=== PATIENT | female | born 1955 | race Caucasian/White ===

== ENCOUNTER 2020-03-24 08:39 | Outpatient (CLI) | payer MEDICARE, OTHER, SELFPAY ==
--- NOTE | ~2020-03-24 | DEXA_ITS ---
Bone Density Report Name: Pily Kumar Age: 64 Sex: Female Ethnicity: White Date of : 1955 Indication: osteopenia; height loss; cancer; hysterectomy; Referring Provider: DESMONDFRANCA Study: Bone densitometry was performed. Exam Date: March 24, 2020 Accession number: [id number] Bone Density: Region BMD T-score Z-score Classification AP Spine (L1-L4) 0.876 -1.6 0.2 Osteopenia Femoral Neck (Left) 0.726 -1.1 0.4 Osteopenia Total Hip (Left) 0.761 -1.5 -0.2 Osteopenia Total Hip Bilateral Avg 0.742 -1.7 -0.4 Osteopenia Femoral Neck (Right) 0.688 -1.5 0.1 Osteopenia Total Hip (Right) 0.721 -1.8 -0.6 Osteopenia World Health Organization criteria for BMD impression classify patients as: Normal (T-score at or above -1.0), Osteopenia (T-score between -1.0 and -2.5), or Osteoporosis (T-score at or below -2.5). 10-year Fracture Risk(1): Major Osteoporotic Fracture 8.7% Hip Fracture 0.9% Reported Risk Factors: [place] (), Neck BMD=0.688, BMI=28.2 (1) FRAX(R) Version 3.08. Fracture probability calculated for an untreated patient. Fracture probability may be lower if the patient has received treatment. Previous Exams: Region Exam Age BMD T-score BMD Change BMD Change Date g/cm2 vs Baseline vs Previous AP Spine(L1-L4) 03/24/2020 64 0.876 -1.6 -0.191(-17.9%) 0.009(1.1%) 04/08/2015 59 0.867 -1.6 -0.200(-18.8%) -0.063(-6.8%)# 02/16/2011 55 0.930 -1.1 -0.137(-12.9%) -0.044(-4.5%)# 02/08/2009 53 0.974 -0.7 -0.093(-8.7%)* -0.018(-1.8%) 10/25/2006 51 0.992 -0.5 -0.075(-7.1%)* 0.023(2.3%) 10/13/2004 49 0.969 -0.7 -0.098(-9.2%)* -0.098(-9.2%)* 09/18/2002 47 1.067 0.2 Total Hip(Left) 03/24/2020 64 0.761 -1.5 -0.119(-13.6%) -0.016(-2.0%) 04/08/2015 59 0.777 -1.4 -0.104(-11.8%) -0.066(-7.8%)# 02/16/2011 55 0.843 -0.8 -0.038(-4.3%)# 0.003(0.4%)# 02/08/2009 53 0.840 -0.8 -0.041(-4.6%)* 0.018(2.1%) 10/25/2006 51 0.822 -1.0 -0.058(-6.6%)* -0.028(-3.3%)* 10/13/2004 49 0.850 -0.8 -0.030(-3.4%)* -0.030(-3.4%)* 09/18/2002 47 0.881 -0.5 Total Hip(Right) 03/24/2020 64 0.721 -1.8 -0.160(-18.2%) -0.126(-14.9%) 04/08/2015 59 0.848 -0.8 -0.034(-3.8%)# 0.006(0.7%)# 02/16/2011 55 0.841 -0.8 -0.040(-4.6%)# 0.000(0.0%)# 02/08/2009 53 0.842 -0.8 -0.040(-4.5%)* 0.000(0.0%) 10/25/2006 51 0.842 -0.8 -0.040(-4.5%)* -0.025(-2.9%) 10/13/2004 49 0.867 -0.6 -0.015(-1.7%) -0.015(-1.7%) 09/18/2002 47 0.881 -0.5 *Denotes signif
--- NOTE | ~2020-03-24 | MM_ITS ---
EXAMINATION: MM screening aguilar LT w mehrdad HISTORY: Screening mammogram TECHNIQUE: Craniocaudal and mediolateral oblique 3-D tomosynthesis images were obtained and synthetic 2-D images were generated. CAD analysis was submitted and interpreted. COMPARISON: 02/19/2019, 09/20/2017, 04/08/2015 left digital screening mammogram examinations BREAST PARENCHYMAL COMPOSITION: The breasts are heterogeneously dense, which may obscure small masses . FINDINGS: There is no evidence of suspicious mass, calcification, or architectural distortion to sugg est malignancy in either breast. There has been no suspicious interval change. IMPRESSION: 1. No mammographic evidence of malignancy. 2. Recommend routine screening mammography in one year. BI-RADS Category 1: Negative Reviewed, dictated and finalized at location A. T STRIPPER
== END 2020-03-24 08:40 | disposition home or self-care (01) ==
LOC: ANHIMG 08:44
PROVIDERS: PCP Physician Assistant; Visit Provider Physician Assistant
DX: Z12.31 Encounter for screening mammogram for malignant neoplasm of breast (principal); Z78.0 Asymptomatic menopausal state; M85.852 Other specified disorders of bone density and structure, left thigh; M85.851 Other specified disorders of bone density and structure, right thigh
CPT/HCPCS: 77063; 77067; 77080

== ENCOUNTER 2021-05-10 14:29 | Outpatient (CLI) | payer OTHER, SELFPAY ==
--- NOTE | ~2021-05-10 | MM_ITS ---
EXAMINATION: MM screening aguilar LT w mehrdad HISTORY: Screening TECHNIQUE: Craniocaudal and mediolateral oblique 3-D tomosynthesis images were obtained and synthetic 2-D images were generated. CAD analysis was submitted and interpreted. COMPARISON: Comparison to multiple prior studies sequentially, with oldest reviewed study dated 05/29. BREAST PARENCHYMAL COMPOSITION: The breasts are heterogeneously dense, which may obscure small masses . FINDINGS: There is no evidence of suspicious mass, calcification, or architectural distortion to sugg est malignancy in either breast. There has been no suspicious interval change. IMPRESSION: 1. No mammographic evidence of malignancy. 2. Recommend routine screening mammography in one year. BI-RADS Category 1: Negative Reviewed, dictated and finalized at location A. [employer]
== END 2021-05-10 14:30 | disposition home or self-care (01) ==
LOC: ANHIMG 14:32
PROVIDERS: Visit Provider Physician Assistant
DX: Z12.31 Encounter for screening mammogram for malignant neoplasm of breast (principal)
CPT/HCPCS: 77063; 77067

== ENCOUNTER 2021-05-18 14:10 | Outpatient (CLI) | payer OTHER, SELFPAY ==
[2021-05-18 15:04] LABS: Alanine Aminotransferase 27 U/L (4-35); Albumin Level 4.5 g/dL (3.5-5.1); Alkaline Phosphatase 67 U/L (38-126); Anion Gap 8 mmol/L (8-16); Aspartate Amino Transferase 40 U/L (14-36); Bilirubin,Total 0.5 mg/dL (0.2-1.3); Blood Urea Nitrogen 35 mg/dL (7-17); Calcium 9.3 mg/dL (8.4-10.2); Carbon Dioxide 25 mmol/L (22-30); Chloride 104 mmol/L (98-107); Estimated Glomerular Filt Rate 45; Glucose 93 mg/dL (65-110); Potassium 4.2 mmol/L (3.4-5.0); Sodium 137 mmol/L (137-145)
[2021-05-18 15:16] LABS: Thyroid Stimulating Hormone 0.452 uIU/mL (0.465-4.680)
== END 2021-05-18 14:11 | disposition home or self-care (01) ==
LOC: ANHLAB 14:15
PROVIDERS: PCP Physician Assistant; Visit Provider Physician Assistant
DX: M25.50 Pain in unspecified joint (principal); I10 Essential (primary) hypertension; R53.83 Other fatigue
CPT/HCPCS: 36415; 80053; 84443; 86038

== ENCOUNTER 2022-04-02 14:09 | Outpatient (CLI) | payer MEDICARE, SELFPAY ==
--- NOTE | ~2022-04-02 | DEXA_ITS ---
Bone Density Report Name: APRIL MADISON Age: 66 Sex: Female Ethnicity: White Date of : 1955 Indication: osteopenia; height loss; cancer; hysterectomy; postmenopausal Referring Provider: DESMOND, FRANCA Study: Bone densitometry was performed. Exam Date: April 02, 2022 Accession number: [id number] Bone Density: Region BMD T-score Z-score Classification AP Spine(L1-L4) 0.892 -1.4 0.5 Osteopenia Femoral Neck (Left) 0.642 -1.9 -0.2 Osteopenia Total Hip (Left) 0.729 -1.7 -0.4 Osteopenia World Health Organization criteria for BMD impression classify patients as: Normal (T-score at or above -1.0), Osteopenia (T-score between -1.0 and -2.5), or Osteoporosis (T-score at or below -2.5). 10-year Fracture Risk(1): Major Osteoporotic Fracture 10% Hip Fracture 1.5% Reported Risk Factors: [place] (), Neck BMD=0.642, BMI=29.2 (1) FRAX(R) Version 3.08. Fracture probability calculated for an untreated patient. Fracture probability may be lower if the patient has received treatment. Previous Exams: Region Exam Age BMD T-score BMD Change BMD Change Date g/cm2 vs Baseline vs Previous AP Spine (L1-L4) 04/02/2022 66 0.892 -1.4 -0.039 (-4.1%) 0.015 (1.7%) 03/24/2020 64 0.876 -1.6 -0.054 (-5.8%) 0.009 (1.1%) 04/08/2015 59 0.867 -1.6 -0.063 (-6.8%) -0.063 (-6.8%) 02/16/2011 55 0.930 -1.1 Total Hip(Left) 04/02/2022 66 0.729 -1.7 -0.114 (-13.5% -0.032 (-4.3%) 03/24/2020 64 0.761 -1.5 -0.082 (-9.7%) -0.016 (-2.0%) 04/08/2015 59 0.777 -1.4 -0.066 (-7.8%) -0.066 (-7.8%) 02/16/2011 55 0.843 -0.8 *Denotes significance at 95% confidence level, LSC for AP Spine = 0.022 g/cm2, LSC for Total Hip = 0.027 g/cm2 # Denotes dissimilar scan types or analysis methods Clinical Information Provided by Patient: Has used the following medications: Vitamin D Has the following medical conditions: Cancer, Hysterectomy Patient maximum height was 65 Menopause Age: 37 No regular weight bearing exercise Does not regularly consume dairy products Drinks caffeinated beverages Onset of menses at age 13 Number of children 1 Impression: The patient has low bone mass, based on the Left Femoral Neck T-score. The patient has an estimated ten-year risk of hip fracture of 1.5% and an estimated ten-year risk of major fracture of 10%, based on the WHO FRAX algorithm. The BMD for the Total Hip(Left) decreased, changing by -4.3% since the last DXA exam. Discussion: BONE DENSITY IS LOW AT ONE OR MORE
== END 2022-04-02 14:10 | disposition home or self-care (01) ==
PROVIDERS: PCP Physician Assistant; Visit Provider Physician Assistant
DX: Z78.0 Asymptomatic menopausal state (principal); M85.89 Other specified disorders of bone density and structure, multiple sites
CPT/HCPCS: 77080

== ENCOUNTER 2022-06-04 14:21 | Outpatient (CLI) | payer MEDICARE, SELFPAY ==
--- NOTE | ~2022-06-04 | MM_ITS ---
EXAMINATION: MM screening aguilar LT w mehrdad HISTORY: Screening mammogram TECHNIQUE: Craniocaudal and mediolateral oblique 3-D tomosynthesis images were obtained and synthetic 2-D images were generated. CAD analysis was submitted and interpreted. COMPARISON: 05/10/2021, 03/24/2020, 02/19/2019 bilateral screening mammogram examinations BREAST PARENCHYMAL COMPOSITION: The breasts are heterogeneously dense, which may obscure small masses . FINDINGS: There is no evidence of suspicious mass, calcification, or architectural distortion to sugg est malignancy in either breast. There has been no suspicious interval change. IMPRESSION: 1. No mammographic evidence of malignancy. 2. Recommend routine screening mammography in one year. BI-RADS Category 1: Negative Reviewed, dictated and finalized at location A.
== END 2022-06-04 14:22 | disposition home or self-care (01) ==
PROVIDERS: PCP Physician Assistant; Visit Provider Physician Assistant
DX: Z12.31 Encounter for screening mammogram for malignant neoplasm of breast (principal)
CPT/HCPCS: 77063; 77067

== ENCOUNTER 2024-03-31 15:05 | Outpatient (CLI) | payer MEDICARE, SELFPAY ==
--- NOTE | ~2024-03-31 | MM_ITS ---
EXAMINATION: MM screening aguilar LT w mehrdad HISTORY: Screening. Status post right mastectomy. TECHNIQUE: Craniocaudal and mediolateral oblique 3-D tomosynthesis images were obtained and synthetic 2-D images were generated. CAD analysis was submitted and interpreted. COMPARISON: Comparison to multiple prior studies sequentially, with oldest reviewed study dated 08/2015. BREAST PARENCHYMAL COMPOSITION: Dense: The breasts are heterogeneously dense, which may obscure small masses FINDINGS: There is no evidence of suspicious mass, calcification, or architectural distortion to sugg est malignancy in the left breast. There has been no suspicious interval change. IMPRESSION: 1. No mammographic evidence of malignancy. 2. Recommend routine screening mammography in one year. BI-RADS Category 1: Negative Reviewed, dictated and finalized at location A. [employer]
== END 2024-03-31 15:06 | disposition home or self-care (01) ==
LOC: ANHIMG 15:08
PROVIDERS: PCP Physician Assistant; Visit Provider Physician Assistant
DX: Z12.31 Encounter for screening mammogram for malignant neoplasm of breast (principal)
CPT/HCPCS: 77063; 77067

== ENCOUNTER → 2025-01-05 14:46 | Outpatient (CLI) | payer MEDICARE, SELFPAY ==
--- NOTE | ~2025-01-05 | XR_ITS ---
EXAM/PROCEDURE: XR cervical spine 4-5V HISTORY: NECK PAIN COMPARISON: None available. TECHNIQUE: 7 views were obtained. FINDINGS: There is demineralization. The odontoid process appears grossly intact. Vertebral bodies: The height is well maintained. Alignment: Normal. There is loss of disc space height at multiple levels with osteophyte formation. Prevertebral soft tissues appear normal. IMPRESSION: No acute findings. Degenerative change Reviewed, dictated and finalized at location A. MANAGER
--- NOTE | ~2025-01-05 | XR_ITS ---
XR thoracic spine 2V Indication: NECK AND BACK PAIN, Nki Comparison: None Findings: Levoconvex scoliosis. Moderate loss of vertebral height throughout. No acute fracture or subluxation. Moderate to severe loss of disc height throughout. Soft tissues unremarkable Impression: No acute abnormality. Reviewed, dictated and finalized at location P. [employer] Impression: No acute abnormality.
== END ==
LOC: EXPCRAD 14:50
PROVIDERS: PCP Physician Assistant; Visit Provider Physician Assistant
DX: M54.6 Pain in thoracic spine (principal); G89.29 Other chronic pain; M50.30 Other cervical disc degeneration, unspecified cervical region
CPT/HCPCS: 72050; 72070